=== PATIENT | female | born 1955 ===

== ENCOUNTER 2022-02-15 14:27 | Inpatient (IN) ==
[2022-02-15] MEDS ORDERED: PIPERACILLIN/TAZOBACTAM 3,375 MG in SODIUM CHLORIDE 0.9% 100 ML IV STA (15:24)
[2022-02-15] MEDS ORDERED: GLUCAGON 1 MG VIAL IM PRN (15:30)
[2022-02-15] MEDS ORDERED: ONDANSETRON 4 MG/2 ML VIAL IV PRN (15:30)
[2022-02-15] MEDS: SODIUM CHLORIDE 0.9% 1,000 ML IV SCH (15:54)
[2022-02-15] MEDS ORDERED: DEXTROSE 10% 250 ML BAG IV PRN (15:56)
[2022-02-15] MEDS: INSULIN LISPRO 100 UNIT/ML SUBCUT SCH ×2 (16:44→20:58)
[2022-02-15] MEDS: PIPERACILLIN/TAZOBACTAM 3,375 MG in SODIUM CHLORIDE 0.9% 100 ML IV SCH ×2 (17:40→17:41)
[2022-02-15] MEDS: SODIUM CHLORIDE 0.45% 1,000 ML IV SCH (21:30)
[2022-02-16] MEDS: PIPERACILLIN/TAZOBACTAM 3,375 MG in SODIUM CHLORIDE 0.9% 100 ML IV SCH ×3 (04:00→22:06)
[2022-02-16 05:42] LABS: Basophils % 0.2 % (0.0-0.8); Eosinophils # 0.1 10*3/uL (0.0-0.87); Eosinophils % 1.2 % (0.00-10.9); Hemoglobin 10.9 GM/DL (12.0-16.0); Immature Granulocytes % 0.5 %; Immature Granulocytes Absolute 0.03 #; Lymphocytes # 1.4 10*3/uL (1.4-4.0); Lymphocytes % 23.8 % (21.3-54.2); Mean Corpuscular HGB Conc 32.1 GM/DL (32-36); Mean Corpuscular Volume 85.9 FL (87-102); Mean Platelet Volume 8.7 FL (9.6-12.0); Monocytes # 0.4 10*3/uL (0.11-0.8); Monocytes % 6.2 % (1.7-12.7); Neutrophils % 68.1 % (38.7-73.9); Platelet Count 350 T/CUMM (130-400); Red Blood Count 3.96 MC/CUMM (3.8-5.5); Red Cell Distribution Width 14.1 % (9.3-17.3); White Blood Count 5.8 T/CUMM (4-12)
[2022-02-16 06:00] LABS: Calcium 8.5 MG/DL (8.5-10.1)
[2022-02-16] MEDS: INSULIN LISPRO 100 UNIT/ML SUBCUT SCH ×4 (08:17→22:05)
[2022-02-16] MEDS ORDERED: ENOXAPARIN 40 MG/0.4 ML SYRINGE SUBCUT SCH (09:00)
[2022-02-16] MEDS ORDERED: LIDOCAINE 2% 5 ML VIAL ONE (09:02)
[2022-02-16] MEDS ORDERED: MIDAZOLAM 2 MG/2 ML VIAL ONE (09:02)
[2022-02-16] MEDS ORDERED: propofoL 200 MG/20 ML VIAL IV ONE (09:02)
[2022-02-16] MEDS ORDERED: ONDANSETRON 4 MG/2 ML VIAL ONE (09:02)
[2022-02-16] MEDS ORDERED: SEVOFLURANE 1 UNIT/15 MINUTE INH ONE (09:02)
[2022-02-16] MEDS ORDERED: fentaNYL 100 MCG/2 ML VIAL ONE (09:02)
[2022-02-16] MEDS: SODIUM CHLORIDE 0.45% 1,000 ML IV SCH (09:11)
[2022-02-16] MEDS ORDERED: PHENYLEPHRINE 1 MG/10 ML SYRINGE IV ONE (09:38)
[2022-02-16] MEDS: PANTOPRAZOLE 40 MG TABLET PO SCH (12:41)
[2022-02-16] MEDS: SODIUM CHLORIDE 0.9% 1,000 ML IV SCH ×2 (12:49→22:06)
[2022-02-17] MEDS: PIPERACILLIN/TAZOBACTAM 3,375 MG in SODIUM CHLORIDE 0.9% 100 ML IV SCH ×3 (05:32→21:38)
[2022-02-17] MEDS: INSULIN LISPRO 100 UNIT/ML SUBCUT SCH ×4 (09:42→21:39)
[2022-02-17] MEDS: PANTOPRAZOLE 40 MG TABLET PO SCH (09:42)
[2022-02-17] MEDS: SODIUM CHLORIDE 0.9% 1,000 ML IV SCH ×2 (11:52→14:42)
[2022-02-18] MEDS: SODIUM CHLORIDE 0.9% 1,000 ML IV SCH (02:07)
[2022-02-18] MEDS: PIPERACILLIN/TAZOBACTAM 3,375 MG in SODIUM CHLORIDE 0.9% 100 ML IV SCH ×2 (04:17→13:26)
[2022-02-18] MEDS: PANTOPRAZOLE 40 MG TABLET PO SCH (09:26)
[2022-02-18] MEDS: INSULIN LISPRO 100 UNIT/ML SUBCUT SCH ×2 (09:26→13:26)
[2022-02-18] MEDS ORDERED: TUBERCULIN SKIN TEST 0.1 ML SYRINGE INTRADERM ONE (11:00)
[2022-02-18 12:14] VITALS: BP 164/79
== END 2022-02-18 15:00 | disposition home health service (06) | DRG 624 ==
LOC: N.ED 14:27 → N.EDINP 15:30 → N.5E 16:36
PROVIDERS: ADMIT Surgery; ATTEND Surgery